=== PATIENT | male | born 1975 | race Caucasian/White ===

== ENCOUNTER 2020-08-31 23:51 | Inpatient (IN) | payer MEDICAID, SELFPAY ==
[~2020-08-31] VITALS: Ht 188 cm; Wt 83.5 kg
[2020-08-31 23:53] VITALS: BP 130/90
--- NOTE | 2020-09-01 00:08 | NUR ---
Dr. Arce examining patient.
[2020-09-01] MEDS ORDERED: VANCOMYCIN 1,000 MG in DEXTROSE 5% 250 ML IV ONE (00:25)
[2020-09-01] MEDS ORDERED: ONDANSETRON 4 MG/2 ML VIAL IVP ONE (00:25)
[2020-09-01] MEDS ORDERED: NACL 0.9% 1,000 ML IV ONE ×2 (00:25→01:20)
[2020-09-01] MEDS ORDERED: MORPHINE SULFATE 4 MG/ML SYR IVP ONE (00:25)
[2020-09-01] MEDS ORDERED: CLINDAMYCIN 900 MG in DEXTROSE 5% 100 ML IV ONE (00:25)
[2020-09-01] MEDS ORDERED: CLINDAMYCIN 900 MG/6 ML VIAL IV ONE (00:38)
[2020-09-01 00:43] LABS: BASOPHILS # (AUTO) 0.1 K/uL (0.00-0.22); BASOPHILS % (AUTO) 0.5 % (0.0-2.0); EOSINOPHILS # (AUTO) 0.1 K/uL (0-0.4); EOSINOPHILS % (AUTO) 0.9 % (0.0-4.0); HEMATOCRIT 40.8 % (36-52); HEMOGLOBIN 13.7 g/dL (12.0-18.0); LYMPHOCYTES # (AUTO) 1.9 K/uL (2.0-11.5); LYMPHOCYTES % (AUTO) 14.8 % (20.5-51.1); MEAN CORPUSCULAR HEMOGLOBIN 32 pg (27-31); MEAN CORPUSCULAR HGB CONC 34 g/dL (33-37); MONOCYTES % (AUTO) 7.6 % (1.7-9.3); NEUTROPHILS # (AUTO) 9.6 K/uL (1.8-7.7); NEUTROPHILS % (AUTO) 76.2 % (42.2-75.2); PLATELET COUNT (AUTO) 602 K/uL (140-450); RED BLOOD CELL COUNT(AUTO) 4.25 MIL/uL (4.20-6.10); RED CELL DISTRIBUTION WIDTH 13.5 % (11.6-13.7); WHITE BLOOD COUNT (AUTO) 12.6 K/uL (4.8-10.8)
[2020-09-01 00:57] LABS: ALBUMIN 3.4 g/dL (3.4-5.0); ANION GAP 11.4 (8-16); CARBON DIOXIDE 28.8 mmol/L (21-32); POTASSIUM 4.2 mmol/L (3.5-5.1); TOTAL BILIRUBIN 0.3 mg/dL (0.0-1.0)
--- NOTE | 2020-09-01 01:05 | NUR ---
45 YO/M BIB self w CO constant burning shooting R leg pain that worsens w walking, and is swollen, red and had pusulent discharge beginning x2 weeks ago. Patient denies any trauma to leg or insect bite. Patient reports fevers and nausea the first week symptoms began but then went away when he was seen at another hospital and given antibiotics, but reports leg symptoms have not improved. Patient denies current fever or nausea, denies v/d, reports some chills. Patient R lower leg swollen, red, warm, not open. Pedal pulses present +2, cap refil <3sec. PMH:Denies NKA
[2020-09-01] MEDS ORDERED: MORPHINE SULFATE 4 MG/ML SYR IVP PRN (01:20)
--- NOTE | 2020-09-01 01:25 | NUR ---
Gabriela sample drawn from nares and handed to Yin from lab.
--- NOTE | 2020-09-01 02:05 | NUR ---
Patient laying in bed locked in lowest position, HOB slightly elevated, x1 siderail up. Breathing even and unlabored. NAD, will continue to monitor. Patient connected to monitor, VSS.
[2020-09-01] MEDS ORDERED: VANCOMYCIN 1,000 MG VIAL ONE (02:16)
[2020-09-01 03:08] LABS: BARBITURATE, URINE NEGATIVE ng/ml (NEG <=200); BENZODIAZEPINE, URINE NEGATIVE ng/mL (NEG <=200); CANNABINOID, URINE POSITIVE ng/mL (NEG <=50); COCAINE, URINE NEGATIVE ng/mL (NEG <=300); OPIATE, URINE POSITIVE ng/mL (NEG <=2000); PHENCYCLIDINE SCREEN,URINE NEGATIVE ng/mL (NEG <=25)
--- NOTE | 2020-09-01 03:11 | NUR ---
Patient laying in bed locked in lowest position, HOB slightly elevated, x1 siderail up. Patient awake and talking on the phone, antibiotics running. Breathing even and unlabored. NAD, will continue to monitor. Patient connected to monitor, VSS.
[2020-09-01] MEDS ORDERED: CLINDAMYCIN 600 MG/4 ML VIAL IV SCH (05:00)
--- NOTE | 2020-09-01 05:30 | NUR ---
Photo of affected R lower extremety taken.
--- NOTE | 2020-09-01 05:35 | NUR ---
Patient laying in bed locked in lowest position, x 1 side rail up, patient contected to monitor. VSS. Breathing even and unlabored, chest expansion symmetrical. NAD noted, will continue to monitor. Patient consented to CT w contrast. at bedside.
--- NOTE | 2020-09-01 05:55 | NUR ---
PT TAKEN TO CT
--- NOTE | 2020-09-01 06:12 | NUR ---
PT RETURN FROM CT
--- NOTE | 2020-09-01 06:50 | NUR ---
PATIENT C/O 10/10 SHARP PAIN TO RIGHT LOWER LEG. MORPHINE 4MG TO BE GIVEN PER PRN ORDER.
--- NOTE | 2020-09-01 07:09 | NUR ---
Report given to ASHISH Ambrocio for transfer of care at this time.
[2020-09-01] MEDS ORDERED: CLINDAMYCIN 600 MG in DEXTROSE 5% 50 ML IV SCH ×2 (08:00→21:00)
[2020-09-01] MEDS ORDERED: CLINDAMYCIN 600 MG/4 ML VIAL ONE (08:02)
[2020-09-01] MEDS ORDERED: CLINDAMYCIN PHOS 600MG/D5W PM 50 ML IV SCH (09:00)
--- NOTE | 2020-09-01 09:00 | NUR ---
Patient resting with eyes closed, on bedside ekg monitor, vital signs stable, all needs met at this time.
[2020-09-01] MEDS ORDERED: ZOLPIDEM 5 MG TAB PO PRN (10:20)
[2020-09-01] MEDS ORDERED: POTASSIUM CHLORIDE 10 MEQ TABER PO PRN (10:20)
[2020-09-01] MEDS ORDERED: NACL 0.9% 1,000 ML IV SCH (10:20)
[2020-09-01] MEDS ORDERED: ACETAMINOPHEN 325 MG TAB PO PRN (10:20)
[2020-09-01] MEDS ORDERED: LORazepam 2 MG/ML VIAL IM/IVP PRN (10:20)
[2020-09-01] MEDS ORDERED: ONDANSETRON 4 MG/2 ML VIAL IM/IVP PRN (10:20)
[2020-09-01] MEDS ORDERED: DOCUSATE SODIUM 100 MG GELCAP PO PRN (10:20)
[2020-09-01] MEDS ORDERED: MAG SULF 2000 MG/WATER PREMIX 50 ML IV PRN (10:20)
--- NOTE | 2020-09-01 10:44 | NUR ---
Dr. Owusu is evaluating the patient at bedside.
--- NOTE | 2020-09-01 10:47 | NUR ---
Dr. Cobb is evaluating the patient at bedside.
[2020-09-01] MEDS: MORPHINE SULFATE 2 MG/ML SYR IVP PRN ×2 (11:22→16:14)
[2020-09-01] MEDS ORDERED: HYDROGEN PEROXIDE 3% 240 ML BTL TP ONE (11:59)
[2020-09-01 12:29] LABS: PROTHROMBIN TIME 10.6 secs (10.8-13.4)
--- NOTE | 2020-09-01 12:42 | NUR ---
PT TAKEN TO SURGERY [facility]IA [facility] WITH 2 RN
[2020-09-01] MEDS ORDERED: MIDAZOLAM 2 MG/2 ML VIAL ONE (12:53)
[2020-09-01] MEDS ORDERED: fentaNYL citrate 0.05 MG/ML VIAL ONE (12:53)
[2020-09-01] MEDS ORDERED: PROPOFOL 200 MG/20 ML VIAL IV ONE (12:55)
[2020-09-01] MEDS ORDERED: ONDANSETRON 4 MG/2 ML VIAL ONE (13:15)
[2020-09-01] MEDS ORDERED: DEXAMETHASONE 4 MG/ML VIAL ONE (13:15)
[2020-09-01] MEDS ORDERED: MEPERIDINE 50 MG/ML SYR ONE (13:25)
[2020-09-01] MEDS ORDERED: diphenhydrAMINE 50 MG/ML VIAL IVP PRN (13:45)
[2020-09-01] MEDS ORDERED: HYDROmorphone 1 MG/ML AMP IVP PRN (13:45)
[2020-09-01] MEDS ORDERED: MEPERIDINE 25 MG/ML SYR IVP PRN (13:45)
[2020-09-01] MEDS ORDERED: ONDANSETRON 4 MG/2 ML VIAL IVP PRN (13:45)
[2020-09-01] MEDS: LACTATED RINGERS 1,000 ML IV SCH ×3 (13:45→16:15)
--- NOTE | 2020-09-01 14:22 | NUR ---
PT ARRIVED FROM OR VIA [facility]. PT HAS EYES CLOSED, EASY TO AROUSE.
[2020-09-01 14:31] LABS: CHOL/HDL RATIO 4.4 (1-4.5); MAGNESIUM 2.1 mg/dL (1.8-2.4); THYROID STIMULATING HORMONE 2.56 uIU/mL (0.34-3.74)
--- NOTE | 2020-09-01 14:50 | NUR ---
PT TRANSFERRED TO BONE SCAN VIA [facility]. PT STABLE.
[2020-09-01] MEDS ORDERED: VANCOMYCIN PER PHARMACY MC PRN (15:10)
--- NOTE | 2020-09-01 15:22 | NUR ---
PT RETURNED FROM BONE SCAN VIA [facility]. VITALS WNL. PT STATES HE IS STILL IN PAIN. PROVIDED REPOSITIONING AND DEEP BREATHING EXERCISE. CALL LIGHT WITHIN REACH.
--- NOTE | 2020-09-01 15:59 | NUR ---
PATIENT HAS BEEN SCREENED AND CATEGORIZED LOW NUTRITION RISK. PATIENT WILL BE SEEN WITHIN 7 DAYS OF ADMISSION. 09/07/[address]
[2020-09-01 16:00] VITALS: BP 107/68
[2020-09-01] MEDS: VANCOMYCIN HCL 1.25 GM in DEXTROSE 5% 250 ML IV SCH ×2 (16:00→16:15)
[2020-09-01 16:03] LABS: APPEARANCE,URINE CLEAR (CLEAR); BILIRUBIN,URINE NEGATIVE (NEGATIVE); BLOOD, URINE NEGATIVE (NEGATIVE); COLOR,URINE YELLOW (YELLOW); LEUKOCYTE ESTERASE ,URINE NEGATIVE (NEGATIVE); NITRITE, URINE NEGATIVE (NEGATIVE); UGLUCOSE NEGATIVE (NEGATIVE)
--- NOTE | 2020-09-01 17:05 | NUR ---
PT TRANSFERRED TO FINISH BONE SCAN PICTURES VIA [facility]. PT STABLE.
--- NOTE | 2020-09-01 18:10 | NUR ---
PT RETURNED FROM BONE SCAN. VITALS STABLE. NO S/S OF DISTRESS. ALL SAFETY MEASURES IN PLACE.
--- NOTE | 2020-09-01 19:15 | NUR ---
RECEIVED PATIENT FROM AM NURSE FOR CONTINUITY OF CARE. PATIENT IS A/O X4. RESPIRATORY EVEN AND UNLABORED, ON ROOM AIR, NO SIGN OF RESPIRATORY DISTRESS NOTED. SKIN WARM, DRY, NON DIAPHORETIC, I&D WOUND NOTED ON RIGHT LOWER LEG, DRESSING IN PLACE, DRY AND CLEAN. IV ON LEFT FA 20G, INTACT AND PATENT, IS INFUSING LR @120ML/HR. PATIENT DENIES ANY PAIN AT THIS TIME. ABLE TO MAKE NEEDS KNOWN. PLAN OF CARE DISCUSSED, PATIENT VERBALIZED UNDERSTANDING. CALL LIGHT WITHIN REACH. WILL CONTINUE TO MONITOR.
--- NOTE | 2020-09-01 19:30 | NUR ---
PT ENDORSED TO PULPING MACHINE OPERATOR RN. PT IN BED EATING DINNER. PT DENIES PAIN, PT HAS NO NEEDS AT THIS TIME.
[2020-09-01 20:00] VITALS: BP 121/65
--- NOTE | 2020-09-01 20:10 | NUR ---
SCHEDULE MEDICATION GIVEN WITH EDUCATION. PATIENT VERBALIZED UNDERSTANDING. PATIENT TOLERATED WELL. NO SIGN OF DISTRESS NOTED. CALL LIGHT WITHIN REACH. WILL CONTINUE TO MONITOR.
--- NOTE | 2020-09-01 21:55 | NUR ---
FOUND PATIENT WALKING TOWARD THE LOBBY. PATIENT STATES HE WANTS TO GO OUT TO SEE HIS WHO IS WAITING OUTSIDE. NURSING MED PEDS AWARE AND ALLOW PATIENT MET HIS AT [facility] WITH SECURITY.
--- NOTE | 2020-09-01 22:30 | NUR ---
PATIENT RETURNS TO ROOM. PATIENT IS STABLE, NO SIGN OF DISTRESS NOTED. PATIENT REPORTS HIS WORKS AT THE DAYTIME SO SHE CANNOT COME DURING VISITING HOURS. PATIENT REPORTS HE SMOKED CIGARETTES, OFFERED PATIENT SMOKING CESSATION PLAN, PATIENT REFUSED. WILL CONTINUE EDUCATE REGARDING HOSPITAL POLICY ABOUT SMOKING. CALL LIGHT WITHIN REACH. WILL CONTINUE TO MONITOR.
--- NOTE | 2020-09-02 | NUR ---
PATIENT IS AWAKE, WATCHING TV. NO SIGN OF DISTRESS NOTED. CALL LIGHT WITHIN REACH. WILL CONTINUE TO MONITOR.
[2020-09-02] MEDS: MORPHINE SULFATE 2 MG/ML SYR IVP PRN ×4 (00:26→22:34)
--- NOTE | 2020-09-02 00:26 | NUR ---
PATIENT COMPLAINS PAIN 6/10 ON HIS RIGHT LOWER LEG, PRN MEDICATION MORPHINE GIVEN WITH EDUCATION, PATIENT VERBALIZED UNDERSTANDING. PATIENT TOLERATED WELL. CALL LIGHT WITHIN REACH. WILL CONTINUE TO MONITOR. Addendum: 09/02/20 at 0033 by Yogesh Choudhary RN RN VS STABLE, BP 118/70, HR 82
--- NOTE | 2020-09-02 01:41 | NUR ---
PATIENT IS SLEEPING, CHEST RISE AND FALL NOTED. NO SIGN OF DISTRESS. CALL LIGHT WITHIN REACH. WILL CONTINUE TO MONITOR.
[2020-09-02 04:00] VITALS: BP 122/56
--- NOTE | 2020-09-02 04:00 | NUR ---
ROUND CHECK. PATIENT IS SLEEPING, CHEST RISE AND FALL NOTED. NO SIGN OF DISTRESS. CALL LIGHT WITHIN REACH. WILL CONTINUE TO MONITOR
--- NOTE | 2020-09-02 06:07 | NUR ---
PATIENT COMPLAINS PAIN 6/10 ON HIS RIGHT LOWER LEG, BP 117/66, HR 65. PRN MORPHINE GIVEN WITH EDUCATION. PATIENT VERBALIZED UNDERSTANDING. PATIENT TOLERATED WELL. CALL LIGHT WITHIN REACH. WILL CONTINUE TO MONITOR.
[2020-09-02 06:10] LABS: BASOPHILS % (AUTO) 0.1 % (0.0-2.0); EOSINOPHILS % (AUTO) 0.1 % (0.0-4.0); HEMOGLOBIN 12.9 g/dL (12.0-18.0); LYMPHOCYTES # (AUTO) 1.6 K/uL (2.0-11.5); LYMPHOCYTES % (AUTO) 10.9 % (20.5-51.1); MEAN CORPUSCULAR HEMOGLOBIN 32 pg (27-31); MEAN CORPUSCULAR HGB CONC 33 g/dL (33-37); MEAN CORPUSCULAR VOLUME 96.4 fL (80-94); MONOCYTES # (AUTO) 0.7 K/uL (0.8-1.0); NEUTROPHILS # (AUTO) 12.5 K/uL (1.8-7.7); NEUTROPHILS % (AUTO) 83.9 % (42.2-75.2); PLATELET COUNT (AUTO) 548 K/uL (140-450); RED BLOOD CELL COUNT(AUTO) 4.04 MIL/uL (4.20-6.10); RED CELL DISTRIBUTION WIDTH 13.2 % (11.6-13.7); WHITE BLOOD COUNT (AUTO) 14.9 K/uL (4.8-10.8)
[2020-09-02 06:19] LABS: ANION GAP 8.4 (8-16); CARBON DIOXIDE 30.7 mmol/L (21-32); POTASSIUM 4.1 mmol/L (3.5-5.1)
[2020-09-02 06:25] LABS: MAGNESIUM 2.1 mg/dL (1.8-2.4); PHOSPHORUS 4.5 mg/dL (2.5-4.9)
--- NOTE | 2020-09-02 07:15 | NUR ---
ENDORSED PATIENT TO AM NURSE FOR CONTINUITY OF CARE. PATIENT IS STABLE.
--- NOTE | 2020-09-02 07:18 | NUR ---
RECEIVED REPORT FROM NIGHT NURSE PT IS AAOX4 ON ROOM AIR, AMBULATORY, S/P I7D ON RIGHT LEG ABSCESS ON 09/01/[address] SANTIZO LEAVE DRESSING FOR 24h PER NIGHT NURSE, SKIN NON INTACT ON RIGHT LOWER LEG, LAST BOWEL MOVEMENT ON 08/31/20 IV ON LEFT FA WITH LR AT 120 MLS/HR. BLOOD CULTURE AND URINE CULTURE PENDING. SAFETY MEASURES IN PLACE AND CALL LIGHT WILL CONTINUE TO MONITOR.
[2020-09-02 08:00] VITALS: BP 115/66
[2020-09-02] MEDS: VANCOMYCIN HCL 1.25 GM in DEXTROSE 5% 250 ML IV SCH ×2 (09:50→20:24)
--- NOTE | 2020-09-02 09:50 | NUR ---
ADMINISTERED SCHEDULED MEDICATION CHECK VITAL SIGNS PRIOR TO MEDICATION BP 115/66 MI 62, PT IS RESTING NO DISTRESS NOTED AND DENIES ANY PAIN WILL CONTINUE TO MONITOR,
--- NOTE | 2020-09-02 12:00 | NUR ---
PT IS EATING AND NO DISTRESS NOTED DENIES ANY PAIN. WILL CONTINUE MONITORING
--- NOTE | 2020-09-02 13:08 | NUR ---
DC PLANNING: FAXED TO [facility] [phone]. CM TO FOLLOW
--- NOTE | 2020-09-02 13:21 | NUR ---
MADE ROUND CHECK ON THE PATIENT WOUND DRY AND INTACT PER DOCTOR ORDER KEEP IT CLOSED AND NOT OPEN. IV FLUID INFUSING WELL.
[2020-09-02] MEDS: LACTATED RINGERS 1,000 ML IV SCH ×2 (14:45→23:05)
--- NOTE | 2020-09-02 15:00 | NUR ---
PATIENT WENT OUT AND TRIED TO SMOKE OUTSIDE ACCOMPANIED BY PARTNER, INSTRUCTED PT THAT HIS NOT ALLOWED TO GO OUT AND SMOKE.
[2020-09-02 16:00] VITALS: BP 116/71
--- NOTE | 2020-09-02 18:15 | NUR ---
PATIENT COMPLAINS OF PAIN ON THE RIGHT LEG. PAIN MEDICATION GIVEN
--- NOTE | 2020-09-02 19:31 | NUR ---
ENDORSED TO NIGHT NURSE FOR CONTINUITY OF CARE. PT IS STABLE
--- NOTE | 2020-09-02 19:32 | NUR ---
RECEIVED PATIENT FROM AM NURSE FOR CONTINUITY OF CARE. PATIENT IS A/O X4. RESPIRATORY EVEN AND UNLABORED, ON ROOM AIR, NO SIGN OF RESPIRATORY DISTRESS NOTED. SKIN WARM, DRY, NON DIAPHORETIC, I&D WOUND NOTED ON RIGHT LOWER LEG WITH DR SANTIZO ON 09/01/2020, DRESSING IN PLACE, DRY AND CLEAN. IV ON LEFT FA 20G, INTACT AND PATENT, IS INFUSING LR @120ML/HR. PATIENT DENIES ANY PAIN AT THIS TIME. ABLE TO MAKE NEEDS KNOWN. PATIENT'S FAMILY AT BEDSIDE. PLAN OF CARE DISCUSSED, PATIENT AND FAMILY VERBALIZED UNDERSTANDING. CALL LIGHT WITHIN REACH. WILL CONTINUE TO MONITOR
[2020-09-02 20:00] VITALS: BP 111/66
--- NOTE | 2020-09-02 20:00 | NUR ---
GERARDO SANTIZO, DRESSING CHANGE ON RIGHT LOWER LEG DAILY.
--- NOTE | 2020-09-02 20:24 | NUR ---
SCHEDULE MEDICATIONS GIVEN WITH EDUCATION, PATIENT AND FAMILY MEMBER VERBALIZED UNDERSTANDING. PATIENT TOLERATED WELL. CALL LIGHT WITHIN REACH. WILL CONTINUE TO MONITOR.
--- NOTE | 2020-09-02 22:34 | NUR ---
PATIENT COMPLAINS OF PAIN S/P TO I&D WOUND, MORPHINE PRN GIVEN WITH EDUCATION. PATIENT VERBALIZED UNDERSTANDING. PATIENT TOLERATED WELL. CALL LIGHT WITHIN REACH. WILL CONTINUE TO MONITOR.
--- NOTE | 2020-09-03 00:32 | NUR ---
PATIENT'S FAMILY DROP OFF HOME FOOD AT THE LOBBY. PICK IT AND DELIVER IT TO THE PATIENT ROOM. PATIENT IS AWAKE, TALKING ON THE PHONE. NO SIGN OF DISTRESS NOTED. CALL LIGHT WITHIN REACH. WILL CONTINUE TO MONITOR.
--- NOTE | 2020-09-03 02:00 | NUR ---
ROUND CHECK. PATIENT IS SLEEPING, CHEST RISE AND FALL, NO SIGN OF DISTRESS. CALL LIGHT WITHIN REACH. WILL CONTINUE TO MONITOR.
[2020-09-03] MEDS: MORPHINE SULFATE 2 MG/ML SYR IVP PRN ×5 (03:05→21:06)
[2020-09-03 04:00] VITALS: BP 111/58
--- NOTE | 2020-09-03 04:00 | NUR ---
ROUND CHECK. PATIENT IS SLEEPING, CHEST RISE AND FALL, NO SIGN OF RESPIRATORY DISTRESS. CALL LIGHT WITHIN REACH. WILL CONTINUE TO MONITOR.
--- NOTE | 2020-09-03 06:00 | NUR ---
PATIENT IS AWAKE, RESTING IN BED, NO SIGN OF DISTRESS NOTED. CALL LIGHT WITHIN REACH. WILL CONTINUE TO MONITOR.
--- NOTE | 2020-09-03 07:15 | NUR ---
PT ENDORSED BY TIMBER ESTIMATOR NURSE FOR CONTINUITY OF CARE, POC DISCUSSED. PT IS RESTING COMFORTBLY IN BED WITH NO S/S OF ACUTE DISTRESS. PT DENIES PAIN AT THIS TIME. PT IS ON ROOM AIR WITH CHEST RISING AND FALLING EVEN AND UNLABORED. PT IS A&OX4. PT HAS A L FA 20 G RUNNING LR @120ML ALL SAFETY MEASURES IN PLACE, CALL LIGHT WITHIN REACH. WILL CONTINUE TO MONITOR
--- NOTE | 2020-09-03 07:18 | NUR ---
ENDORSED PATIENT TO AM NURSE FOR CONTINUITY OF CARE. PATIENT IS STABLE.
[2020-09-03] MEDS: LACTATED RINGERS 1,000 ML IV SCH ×2 (07:25→16:28)
[2020-09-03 08:00] VITALS: BP 119/61
--- NOTE | 2020-09-03 08:20 | NUR ---
PRN PAIN MEDICATION ADMINISTERED PER MD ORDER, AURELIA HEPARIN ADMINSTERED PER MD ORDER. PT EDUCATION PROVIDED. PT TOLERATED ADMINISTRATION. PT BP WNL. LAB AT BEDSIDE DRAWING VANCO TROUGH. WILL ADMINISTERED AURELIA ABX ONCE LAB COMES BACK. PT IN STABLE CONDITION. ALL SAFETY MEASURES IN PLACE, CALL LIGHT WITHIN REACH. WILL CONTINUE TO MONITOR.
[2020-09-03 08:28] LABS: BASOPHILS # (AUTO) 0.1 K/uL (0.00-0.22); BASOPHILS % (AUTO) 1.8 % (0.0-2.0); EOSINOPHILS # (AUTO) 0.1 K/uL (0-0.4); EOSINOPHILS % (AUTO) 1.3 % (0.0-4.0); HEMATOCRIT 40.5 % (36-52); HEMOGLOBIN 13.3 g/dL (12.0-18.0); LYMPHOCYTES # (AUTO) 2.4 K/uL (2.0-11.5); LYMPHOCYTES % (AUTO) 30.4 % (20.5-51.1); MEAN CORPUSCULAR HEMOGLOBIN 32 pg (27-31); MEAN CORPUSCULAR HGB CONC 33 g/dL (33-37); MEAN CORPUSCULAR VOLUME 96.8 fL (80-94); MONOCYTES # (AUTO) 0.5 K/uL (0.8-1.0); MONOCYTES % (AUTO) 6.5 % (1.7-9.3); NEUTROPHILS # (AUTO) 4.7 K/uL (1.8-7.7); PLATELET COUNT (AUTO) 511 K/uL (140-450); RED BLOOD CELL COUNT(AUTO) 4.19 MIL/uL (4.20-6.10); RED CELL DISTRIBUTION WIDTH 13.3 % (11.6-13.7); WHITE BLOOD COUNT (AUTO) 7.9 K/uL (4.8-10.8)
[2020-09-03 08:42] LABS: ANION GAP 7.8 (8-16); CARBON DIOXIDE 29.1 mmol/L (21-32); CREATININE 0.9 mg/dL (0.6-1.3); POTASSIUM 3.9 mmol/L (3.5-5.1)
[2020-09-03 08:46] LABS: MAGNESIUM 1.9 mg/dL (1.8-2.4)
[2020-09-03] MEDS: VANCOMYCIN HCL 1.25 GM in DEXTROSE 5% 250 ML IV SCH ×2 (08:55→16:36)
--- NOTE | 2020-09-03 09:26 | NUR ---
PT REQUESTED A WALKER TO ASSIST WITH WALKING. DR. MERAZ NOTIFIED AND STATED GO AHEAD WITH PUTTING IN CONSULT FOR PT BUT PT HAS NO INSURANCE AND WILL NEED TO PAY FOR WALKER OUT OF POCKET. INFORMED PT OF THIS, PT STATED HE CHANGED HIS MIND AND IT'S NOT THAT BAD AND DOESN'T WANT THE WALKER. EDUCATION PROVIDED TO PT ON WALKING AND USING THE CALL LIGHT FOR ASSISTANCE DURING AMBULATION.
--- NOTE | 2020-09-03 10:23 | NUR ---
LEFT FA IV DISCONTINUED DUE TO SEVERE PAIN AND LEAKAGE. CATHETER INTACT, NEW IV STARTED IN LEFT HAND 20 GAUGE. SALINE FLUSH, IV PATENT. PT ON IV FLUIDS AND VANCO. ALL SAFETY MEASURES IN PLACE, CALL LIGHT WITHIN REACH. WILL CONTINUE TO MONITOR.
--- NOTE | 2020-09-03 12:25 | NUR ---
PRN PAIN MEDICATION ADMINISTERED PER MD ORDER. PT TOLERATED ADMINISTRATION AND PT EDUCATION PROVIDED. PT VERBALIZED UNDERSTANDING. ALL SAFETY MEASURES IN PLACE. CALL LIGHT WITHIN REACH. WILL CONTINUE TO MONITOR.
--- NOTE | 2020-09-03 13:03 | NUR ---
WOUND CARE EVALUATION NOTE: WOUND ASSESSMENT DONE WITH PRIMARY RN ON THIS S/P DEBRIDEMENT RLE ABSCESS WITH PHOTO OBTAINED, POC WITH WOUND CARE DONE TO PT. PT. IS AAX4 ,PT. VERBALIZES UNDERSTANDING. -RLE SURGICAL WOUND [id number] UNDERMINING TO 9 O'CLOCK DIRECTION, WOUND BED 100% RED GRANULATING TISSUE,SMALL AMOUNT OF BLEEDING, WILLIAMS-WOUND SKIN INTACT,NO ODOR. PAIN 4/10 RECOMMENDATIONS: -CLEANSE RLE WOUND WITH NS, PAT DRY APPLY ADAPTIC DRESSING, COVER WITH DRY DRESSING AND WRAP WITH KERLIX ROLL QD AND PRN IF SOILING
--- NOTE | 2020-09-03 15:46 | NUR ---
DC PLANNING: CM SPOKE WITH AT BEDSIDE. STATES HE HAS BEEN HOMELESS FOR 15 YEARS, IS CURRENTLY STAYING AT [facility] [address] IN [place] WITH HIS GIRLFRIEND. PATIENT'S CELL PHONE IS [phone], STATES HE WILL STAY AT THE [facility] FOR 2 MORE WEEKS. REFERRED TO [facility], STATES HE WILL FIND TRANSPORT THERE. FINANCIAL RESOURCES ARE STIMULUS CHECKS, UNEMPLOYMENT AND MONEY FROM FRIENDS AND FAMILY. STATES HE WILL REAPPLY FOR WELFARE AND FOOD STAMPS. USES MARIJUANA, ALCOHOL AND TOBACCO, INDEPENDENT IN ALL ACTIVITIES INCLUDING AMBULATION. DOES NOT SEE A PHYSICIAN REGULARLY, ENCOURAGED TO FOLLOW UP ON [place] APPLICATION FOR FULL COVERAGE FOR CONSISTENT MD FOLLOW UP. DC PLAN IS TO RETURN TO THE [facility] AND FOLLOW UP WITH THE [facility]. CM WILL CONTINUE TO FOLLOW FOR NEEDS.
--- NOTE | 2020-09-03 16:36 | NUR ---
PRN PAIN MEDICATION ADMINISTERED PER MD ORDER. PT EDUCATION PROVIDED, PT VERBALIZED UNDERSTANDING. AURELIA ABX ADMINISTERED. ASKED CHARGE NURSE IF TROUGH HAS TO BR DRAWN PRIOR EACH ADMINISTRATION, CHARGE NURSE VERBALIZED NO, NOT EVERY TIME. PT IS RESTING IN BED AT BEDSIDE WITH GIRLFRIEND AND FAMILY NEXT TO HIM. PT EDUCATION PROVIDED ON KEEPING GOWN ON, AND GIRLFRIEND NOT LAYING IN THE BED. PT VERBALIZED UNDERSTANDING. PT VERBALIZED ALL NEEDS ARE MET. ALL SAFETY MEASURES IN PLACE, CALL LIGHT WITHIN REACH. WILL CONTINUE TO MONITOR.
--- NOTE | 2020-09-03 17:56 | NUR ---
PT PAIN IS TOLERABLE. PT IS RESTING IN BED WITH GIRLFRIEND AND FRIEND AT BEDSIDE. PT VERBALIZED ALL NEEDS ARE MET. ALL SAFETY MEASURES IN PLACE, CALL LIGHT WITHIN REACH. WILL CONTINUE TO MONITOR.
--- NOTE | 2020-09-03 19:00 | NUR ---
PT HAS BEEN ENDORSED TO CARDROOM PLASTIC CARD GRADER NURSE FOR CONTINUITY OF CARE, POC DISCUSSED.
--- NOTE | 2020-09-03 19:01 | NUR ---
RECD. RESTING IN BED, AWAKE, A/OX4. RESPIRATION EVEN AND UNLABORED. IV OF LR INFUSING AT 120 ML/HR, RIGHT HAND G20. S/P I & D, RIGHT LEG WOUND. SURGICAL INCISION COVERED WITH DRESSING AND KAYLENE WRAPPED BANDAGE. ELEVATED ON TWO PILLOWS. MEDICATIONS FOR THE SHIFT DISCUSSED WITH PATIENT. VERBALIZED UNDERSTANDING. PAIN IN THE RIGHT LEG 03/02, STATED TOLERABLE. WILL MEDICATE PER MD ORDER. VISITOR AT THE BEDSIDE CONVERSING WITH PATIENT.
[2020-09-03 20:00] VITALS: BP 116/67
--- NOTE | 2020-09-03 20:04 | NUR ---
ENDORSED TO ASHISH MOYA FOR CONTINUITY OF CARE.
--- NOTE | 2020-09-03 20:05 | NUR ---
RECEIVED REPORT FROM VANESSA (INTAKE MAN) . PATIENT IN BED AWAKE, ALERT, NO DISTRESS. IVF OF LR AT 120 ML/HR INFUSING ON THE RIGHT HAND. SAFETY MEASURES IN PLACE. CALL LIGHT WITHIN REACH.
--- NOTE | 2020-09-03 20:49 | NUR ---
SCHEDULED MEDICATION GIVEN ORDERED.
--- NOTE | 2020-09-03 21:06 | NUR ---
COMPLAINED OF MODERATE PAIN ON THE RIGHT LEG. MORPHINE ADMINISTERED PER MD ORDERED.
[2020-09-04] MEDS: LACTATED RINGERS 1,000 ML IV SCH ×2 (00:05→04:07)
[2020-09-04] MEDS: VANCOMYCIN HCL 1.25 GM in DEXTROSE 5% 250 ML IV SCH ×2 (01:05→09:41)
[2020-09-04 04:00] VITALS: BP 124/72
[2020-09-04] MEDS: MORPHINE SULFATE 2 MG/ML SYR IVP PRN ×2 (06:18→11:09)
--- NOTE | 2020-09-04 07:21 | NUR ---
ENDORSED TO AM SHIFT NURSE FOR CONTINUITY OF CARE. PT IN STABLE CONDITION.
--- NOTE | 2020-09-04 07:21 | NUR ---
RECEIVED REPORT FOR DIRECTOR OF SECURITIES AND REAL ESTATE NURSE FOR CONTINUITY OF CARE, POC DISCUSSED. PT IS RESTING IN BED AND VERBALIZED ALL NEEDS ARE MET AND PAIN IS TOLERABLE. LAST PAIN MEDICATION ADMINISTERED AT 0618 BY DIRECTOR OF SECURITIES AND REAL ESTATE NURSE. PT IS ON ROOM AIR WITH CHEST RISING AND FALLING EVEN AND UNLABORED. PT HAS A RIGHT HAND 20 G RUNNING LR AT 120. PT HAS A RIGHT LOWER EXTREMITY WOUND WITH DRESSING DRY AND INTACT. ALL SAFETY MEASURES IN PLACE, CALL LIGHT WITHIN REACH. WILL CONTINUE TO MONITOR.
[2020-09-04 08:00] VITALS: BP 128/75
[2020-09-04 08:41] LABS: ANION GAP 6.6 (8-16); CARBON DIOXIDE 30.2 mmol/L (21-32); POTASSIUM 3.8 mmol/L (3.5-5.1)
[2020-09-04 08:45] LABS: BASOPHILS % (AUTO) 0.7 % (0.0-2.0); EOSINOPHILS # (AUTO) 0.1 K/uL (0-0.4); EOSINOPHILS % (AUTO) 1.5 % (0.0-4.0); HEMOGLOBIN 13.4 g/dL (12.0-18.0); LYMPHOCYTES # (AUTO) 1.9 K/uL (2.0-11.5); LYMPHOCYTES % (AUTO) 26.4 % (20.5-51.1); MEAN CORPUSCULAR HEMOGLOBIN 32 pg (27-31); MEAN CORPUSCULAR HGB CONC 33 g/dL (33-37); MEAN CORPUSCULAR VOLUME 95.6 fL (80-94); MONOCYTES # (AUTO) 0.8 K/uL (0.8-1.0); MONOCYTES % (AUTO) 10.7 % (1.7-9.3); NEUTROPHILS # (AUTO) 4.3 K/uL (1.8-7.7); NEUTROPHILS % (AUTO) 60.7 % (42.2-75.2); PLATELET COUNT (AUTO) 459 K/uL (140-450); RED BLOOD CELL COUNT(AUTO) 4.19 MIL/uL (4.20-6.10); RED CELL DISTRIBUTION WIDTH 13.1 % (11.6-13.7)
--- NOTE | 2020-09-04 09:26 | NUR ---
[facility], EAN FROM PHARMACY SAID TO GO AHEAD AND ADMINISTER SCHEDULED DOSE.
[2020-09-04 09:28] LABS: MAGNESIUM 1.9 mg/dL (1.8-2.4); PHOSPHORUS 4.2 mg/dL (2.5-4.9)
--- NOTE | 2020-09-04 09:50 | NUR ---
MORNING MEDICATION ADMINISTERED. PT EDUCATION PROVIDED. PT TOLERATED ADMINISTRATION. PT VERBALIZED ALL NEEDS ARE MET AT THIS TIME. ALL SAFETY MEASURES IN PLACE, CALL LIGHT WITHIN REACH. WILL CONTINUE TO MONITOR.
[2020-09-04] MEDS ORDERED: VANC125C12 PO (10:22)
--- NOTE | 2020-09-04 12:21 | NUR ---
DR. WELLS CALLED, STATED DO NOT DISCHARGE PATIENT ON VANCOMYCIN. READ THE ORDER FOR VANCOMYCIN 250 [address] TO THE [address] AND HE STATED HE WILL CALL DR. MERAZ TO CHANGE THE DISCHARGE MEDICATION. DR. MERAZ CALLED STATED HE WILL GET TO HIS COMPUTER WITHIN AN HOUR, AND WILL UPDATE THE INSTRUCTIONS AND MEDICATION FOR PT TO BE DISCHARGED SHORTLY. WILL NOTIFY PATIENT OF THE DELAY.
[2020-09-04] MEDS ORDERED: SULF-58 PO (12:49)
--- NOTE | 2020-09-04 13:00 | NUR ---
DR. MERAZ UPDATED THE ANTIBIOTICS AND INSTRUCTION AFTER SPEAKING WITH DR. [place]. PT READY FOR DC.
--- NOTE | 2020-09-04 13:31 | NUR ---
PT HAS BEEN DISCHARGED FROM THE HOSPITAL. EDUCATION PROVIDED ON NEW ANTIBIOTIC, BACTRIM BID FOR 7DAYS. RX GIVEN TO PATIENT FROM DR. SANTIZO. EDUCATED PT ON TAKING IT TO PHARMACY TO GET FILLED. EDUCATED PT ON GOOD RX FOR DISCOUNTED PRESCRIPTION. EDUCATION ON WOUND CARE HAS BEEN PROVIDED, SENT PT HOME WITH WOUND DRESSING CHANGE AND A HAND OUT ON WOUND DRESSING CHANGES. EDUCATED PT ON IMPORTANCE TO FOLLOW UP WITH WOUND CARE CLINIC AND DR. SANTIZO. EDUCATION PROVIDED ON TAKING ALL OF HIS ANTIBIOTICS. SPOKE WITH FUENTES FROM [employer] FOR INSURANCE AND PROVIDED PT WITH HER PHONE NUMBER TO GET [employer] SET UP. GAVE PT ADDRESS TO [facility] THAT EVALUATOR RECOMMENDED. REMOVED IV, CATHETER INTACT. REMOVED ID BADGE. PT HAS ALL HIS BELONGINGS. DISCHARGED WITH HIS AT BEDSIDE. PT IN STABLE CONDITION.
== END 2020-09-04 13:31 | disposition home or self-care (01) | DRG 710 ==
LOC: MED 23:51 → MTU 09-01 01:27
PROC: 0J9N0ZZ Drainage of Right Lower Leg Subcutaneous Tissue and Fascia, Open Approach (ICD-10-PCS; principal; 2020-09-01 11:50)
DX: A41.9 Sepsis, unspecified organism (principal); G92 Toxic encephalopathy; L02.415 Cutaneous abscess of right lower limb; E86.0 Dehydration; Z87.891 Personal history of nicotine dependence; Z20.822 Contact with and (suspected) exposure to COVID-19; L03.115 Cellulitis of right lower limb; F15.90 Other stimulant use, unspecified, uncomplicated; F10.10 Alcohol abuse, uncomplicated
CPT/HCPCS: 36415; 71045; 73590; 73701; 78315; 80048; 80053; 80202; 80305; 81003; 83036; 83735; 84100; 84134; 84443; 84484; 85025; 85610; 85730; 87040; 87070; 87075; 87081; 87086; 87205; 90715; 96361; 96365; 96367; 96375; 99285; A9503; G0482; J1100; J1170; J1644; J2175; J2250; J2270; J2405; J2704; J3010; J3370; J3490; J7060; J7120